=== PATIENT | male | born 1955 | race African-American/Black ===

== ENCOUNTER 2018-01-14 19:45 | Emergency (ER) | payer BC ==
[~2018-01-14] VITALS: Ht 185.4 cm; Wt 104.3 kg
[2018-01-14 21:53] VITALS: BP 157/100
[2018-01-14] MEDS ORDERED: cefTRIAXone SOD 1,000 MG VL IM ONE (22:15)
== END 2018-01-14 22:57 | disposition home or self-care (01) ==
LOC: ER 19:45
DX: S40.862A Insect bite (nonvenomous) of left upper arm, initial encounter (principal); S40.861A Insect bite (nonvenomous) of right upper arm, initial encounter; W57.XXXA Bitten or stung by nonvenomous insect and other nonvenomous arthropods, initial encounter; Y93.89 Activity, other specified; Y99.8 Other external cause status; Y92.89 Other specified places as the place of occurrence of the external cause
CPT/HCPCS: 96372; 99283; J0696